=== PATIENT | female | born 1985 | race Caucasian/White ===

== ENCOUNTER 2016-07-15 06:24 | Emergency (ER) | payer BC ==
[~2016-07-15] VITALS: Ht 160 cm; Wt 69.9 kg
[~2016-07-15 06:24] MED LIST: ALPR1TAB2 PO; LAMO200T2 PO; LURA80TA PO
[2016-07-15 06:26] VITALS: BP 121/81
== END 2016-07-15 06:56 | disposition home or self-care (01) ==
LOC: ER 06:27
DX: F41.9 Anxiety disorder, unspecified (principal); F17.210 Nicotine dependence, cigarettes, uncomplicated; F32.9 Major depressive disorder, single episode, unspecified; Z98.51 Tubal ligation status; Z76.0 Encounter for issue of repeat prescription